=== PATIENT | female | born 1960 ===

== ENCOUNTER 2021-12-25 18:15 | Emergency (ER) | payer MEDICAID, OTHER ==
[~2021-12-25] VITALS: Ht 157.5 cm; Wt 58.0 kg
[2021-12-25] MEDS ORDERED: LISI-186 PO (18:42)
[2021-12-25] MEDS ORDERED: LORA10CA PO (18:42)
[2021-12-25] MEDS ORDERED: ATOR10TA PO (18:42)
[2021-12-25] MEDS ORDERED: ACETAMINOPHEN 325MG TABLET PO ONE (22:15)
[2021-12-25] MEDS ORDERED: ACET-2708 MT (23:18)
[2021-12-26] VITALS: BP 140/82
== END 2021-12-25 23:50 | disposition home or self-care (01) ==
LOC: ER 18:15
DX: S09.8XXA Other specified injuries of head, initial encounter (principal); S00.03XA Contusion of scalp, initial encounter; W18.39XA Other fall on same level, initial encounter; Y93.89 Activity, other specified; Y92.89 Other specified places as the place of occurrence of the external cause; Y99.8 Other external cause status; E78.00 Pure hypercholesterolemia, unspecified; I10 Essential (primary) hypertension; Z98.51 Tubal ligation status
CPT/HCPCS: 99284